=== PATIENT | female | born 1950 | race Caucasian/White ===

== ENCOUNTER 2018-08-01 05:55 | Day surgery (SDC) | payer MEDICARE, BC ==
--- NOTE | 2018-07-28 08:05 | HP ---
HISTORY OF PRESENT ILLNESS: This is a 67-year-old female who reports to our office today for evaluation of cervical neck pain with left-sided radiculopathy. The patient states that she has had neck pain for some years, sometimes on the right, but this is new and worse, radiating pain to the left arm. The patient states that her neck is painful that radiates down the left shoulder, back of the arm to the forearm. She denies numbness or tingling. She has noticed weakness worse on the left. She has had one injection a month ago, which gave her 2 weeks of relief, but the pain came right back. She currently is in therapy for her neck, and she has a home traction device. This has not been giving her any lasting relief. REVIEW OF SYSTEMS: 10-point review of systems has been completed and is negative other than stated in the above HPI. PAST MEDICAL HISTORY: Thyroid disorder, IBS, PTSD, asthma, and osteoarthritis. PAST SURGICAL HISTORY: Tonsillectomy; partial hysterectomy; septoplasty; bilateral turbinectomies; PRK, both eyes; lap cholecystectomy; appendectomy; bladder cyst, lap hiatal hernia, Jitendra; and cataracts. FAMILY HISTORY: Noncontributory. MEDICATIONS: 1. Levothyroxine. 2. Fluticasone. 3. Vitamin D. 4. Symbicort. 5. Xopenex. 6. Colestipol hydrochloride. 7. Aloe vera. 8. [place]en-3 [place]. 9. CoQ10. 10. Phenylephrine allergy medication. ALLERGIES: DICYCLOMINE AND BARBITURATES. PHYSICAL EXAMINATION: CONSTITUTIONAL: Alert and oriented. HEENT: Head, normocephalic and atraumatic. Extraocular movements are intact. Hearing is intact. Pupils are equal, round, and reactive to light. Extraocular movements are intact. NECK: Normal, soft, supple. No masses are noted. Range of motion is intact. Tenderness, posterior spine. NEUROLOGIC: Awake, alert, oriented x3. Memory, attention, fund of knowledge, and language are normal. RESPIRATIONS: Normal work of breathing on room air. CRANIAL NERVES: Cranial nerves are grossly intact. UPPER EXTREMITIES: Normal. Does not disclose any focal motor or deep tendon reflex asymmetry. 5/5, bilateral deltoids, biceps, triceps, wrist extension, finger extension, finger intrinsics. Positive Spurling to the left. Reflex symmetric. Left positive ulnar Tinel. ASSESSMENT AND PLAN: Cervical radiculopathy pain. Dr. Henderson has offered ACDF at C5-C6 and C6-C7. We have obtained informed consent, and the patient states that she understands the risks and is willing to proceed. Job ID: [id number]
[2018-07-29 13:43] VITALS: BMI 30.1
[2018-08-01] MEDS ORDERED: Thrombin 5000 UNITS/5 ML VIAL ONE (06:17)
[2018-08-01] MEDS ORDERED: Sodium Chloride 0.9% 10 ML ONE (06:17)
[2018-08-01] MEDS ORDERED: Midazolam HCl 2 mg/2 ml Vial ONE (06:47)
[2018-08-01 07:03] LABS: #Basophils 0.1 thou/uL (0.0-0.2); #Eosinphils 0.2 thou/uL (0.0-0.7); #Lymphocytes 1.5 thou/uL (1.20-3.40); #Monocytes 0.5 thou/uL (0.11-0.59); #Neutrophils 2.8 thou/uL (1.40-6.50); %Eosinophils 3.3 % (0.0-10.0); %Lymphocytes 29.5 % (21.0-51.0); %Monocytes 10.2 % (0.0-10.0); Hemoglobin 14.1 g/dL (12.0-16.0); Mean Corpuscular HGB CONC 33.5 g/dL (32.0-36.0); Mean Corpuscular Hemoglobin 31.3 pg (27.0-31.0); Mean Corpuscular Volume 93.7 fL (78.0-98.0); Platelet Count 189 thou/uL (130-400); RBC Distribution Width 11.8 % (11.5-14.5); White Blood Cell (WBC) Count 5.1 thou/uL (4.8-10.8)
[2018-08-01] MEDS ORDERED: Fentanyl 100 MCG/2 ML VIAL ONE ×2 (07:05→10:07)
[2018-08-01 07:11] LABS: PTT 27.1 SEC (22.9-36.1); Prothrombin Time 13.1 SEC (12.0-14.7)
[2018-08-01] MEDS ORDERED: HYDROcodone/Acetaminophen 5/325 mg Tablet ONE (12:25)
[2018-08-01] MEDS ORDERED: traMADol HCl 50 MG TAB ONE (12:29)
[2018-08-01] MEDS ORDERED: Rocuronium Bromide 10 MG/ML (10ML VIAL) ONE (13:06)
[2018-08-01] MEDS ORDERED: Lidocaine 1% PF 5 ML VIAL ONE (13:06)
[2018-08-01] MEDS ORDERED: Ondansetron PF 4 MG/2 ML Vial ONE (13:06)
[2018-08-01] MEDS ORDERED: PROPOFOL 200 MG/20 ML VIAL ONE (13:06)
[2018-08-01] MEDS ORDERED: Dexamethasone 20 MG/5 ML VIAL ONE (13:06)
[2018-08-01] MEDS ORDERED: PHENYLEPHRINE-NS 100 MCG/ML 10 ML SYRINGE ONE (13:06)
[2018-08-01] MEDS ORDERED: Glycopyrrolate 0.2 MG/ML 5 ML SYRINGE ONE (13:06)
--- NOTE | 2018-08-01 16:05 | OP ---
DATE OF PROCEDURE: 08/01/2018 PIPELINES SUPERVISOR: Sierra Rodríguez PA-C PREOPERATIVE INDICATION: Prevent neurological deterioration, treat pain. PREOPERATIVE DIAGNOSES: Cervical intervertebral disk disease with radiculopathy at C5-C6 and C6-C7 with C6 and C7 radiculopathies. POSTOPERATIVE DIAGNOSES: Cervical intervertebral disk disease with radiculopathy at C5-C6 and C6-C7 with C6 and C7 radiculopathies. PROCEDURES PERFORMED: Anterior cervical diskectomy, intervertebral arthrodesis, placement of intervertebral biomechanical device and anterior cervical plating of C5-C6 and C6-C7, local morselized allograft, and operating microscope. PREOPERATIVE MEDICATION: Ancef 2 g IV. DRAIN NUMBER: Zero. DRAIN TYPE: None. DESCRIPTION OF PROCEDURE: The patient was brought to the operating room. General endotracheal anesthesia was induced. The patient was carefully positioned on the operating table with her head supported by a donut-shaped headrest. A lateral fluoro radiograph was used to plan our incision. The right side of the neck was sterilely prepped and draped. We opened our incision with a 10 blade knife and we controlled bleeding with bipolar cautery. We dissected sharply to the platysma. We cut this muscle in line with our incision. We continued our dissection medial to the sternocleidomastoid and lateral to the trachea and esophagus. We arrived at the prevertebral space and placed a marker on the anterior surface of the spinal column. A lateral fluoro radiograph was used to count levels. We then elevated the longus colli muscles off the anterior surface of C5, C6, and C7, and placed a self-retaining retractor beneath them. Distraction pins were placed at C5 and C7, and we incised the intervening disk spaces with a 15 blade knife. We removed disk contents using curettes and rongeurs. As we approached the posterior longitudinal ligament, the operative microscope was brought into the field. Under microscopic magnification and using microsurgical techniques, we removed the remainder of the intervertebral disk. With a micro curette, we accessed the ventral epidural space and then using Kerrison rongeurs, we removed posterior osteophytes and posterior longitudinal ligament across the entire interspace from one nerve root all the way to the other until the dura was completely decompressed. This was accomplished both at C5-C6 and at C6-C7. We then turned our attention to arthrodesis. Using curettes, we prepared the endplates for grafting. We used a bone rasp to measure the height of each interspace to 6 mm. Two separate 6 mm PEEK intervertebral grafts were brought into the field. These were loaded with demineralized bone matrix and morselized autograft and advanced into the respective interspaces under radiographic guidance to the appropriate depth. The autograft was obtained from our osteophytes that were removed during the course of our decompression. This bone was morselized and added into the demineralized bone matrix to form a fusion substrate. With the interbody graft in place, we removed our distraction pins. We then brought a 28 mm anterior cervical plate into the field. We drilled commuter pilot holes through the plate and we affixed the plate to the vertebral bodies using 14 mm screws. Fixed angle screws were used at C7 and variable angle screws at C5 and C6. We engaged the locking mechanism over each of the 6 screws. We irrigated copiously with bacitracin irrigation. We controlled bleeding with gentle bipolar cautery. AP and lateral fluoro radiographs confirmed adequate positioning of our instrumentation. We closed the wound in anatomical layers and we applied a sterile dressing. This was a clean case with no contamination. Job ID: [id number]
== END 2018-08-01 14:45 | disposition home or self-care (01) ==
LOC: SDC 05:55
PROVIDERS: ATTEND Neurological Surgery
PROC: 0RG20A0 Fusion of 2 or more Cervical Vertebral Joints with Interbody Fusion Device, Anterior Approach, Anterior Column, Open Approach (ICD-10-PCS; principal; 2018-08-01)
PROC: 0RT30ZZ Resection of Cervical Vertebral Disc, Open Approach (ICD-10-PCS; 2018-08-01)
DX: M47.22 Other spondylosis with radiculopathy, cervical region (principal); E07.9 Disorder of thyroid, unspecified; J45.909 Unspecified asthma, uncomplicated; M19.90 Unspecified osteoarthritis, unspecified site; F43.10 Post-traumatic stress disorder, unspecified; Z79.82 Long term (current) use of aspirin; Z79.899 Other long term (current) drug therapy; Z88.2 Allergy status to sulfonamides; Z88.5 Allergy status to narcotic agent; Z88.8 Allergy status to other drugs, medicaments and biological substances; Z91.011 Allergy to milk products; Z91.048 Other nonmedicinal substance allergy status
CPT/HCPCS: 20930; 20936; 22551; 22552; 22845; 22853 ×2; 76000; 85025; 85610; 85730; C1713 ×2; C1776; 36415; J0131; J0690; J1100; J2001; J2250; J2405; J2704; J3010; J3490; L0174